=== PATIENT | female | born 1945 | race American Indian/Alaskan Native ===

== ENCOUNTER 2020-12-12 23:02 | Emergency (ER) | payer MEDICARE ==
[2020-12-13] MEDS ORDERED: HYDROcodone/ACETAMINOPHEN 5-325 MG TAB PO ONE (01:03)
[2020-12-13] MEDS ORDERED: ONDANSETRON 4 MG ODT TAB PO ONE (01:03)
[2020-12-13 01:42] LABS: Basophils % (Auto) 0.4 % (0.0-1.8); Eosinophils # (Auto) 0.1 K/mm3 (0.0-0.4); Eosinophils % (Auto) 1.3 % (0.0-4.3); Hematocrit 30.2 % (30.3-42.9); Hemoglobin 10.6 gm/dl (10.1-14.3); Lymphocytes # (Auto) 3.4 K/mm3 (1.2-5.4); Mean Corpuscular HGB Conc 35 % (30-34); Mean Corpuscular Volume 95 fl (79-97); Monocytes # (Auto) 0.5 K/mm3 (0.0-0.8); Monocytes % (Auto) 5.6 % (0.0-7.3); Platelet Count 327 K/mm3 (140-440); Red Blood Count 3.16 M/mm3 (3.65-5.03); Red Cell Distribution Width 14.1 % (13.2-15.2)
[2020-12-13 02:06] LABS: Albumin 4.6 g/dL (3.9-5); Calcium 9.7 mg/dL (8.4-10.2)
--- NOTE | 2020-12-13 02:44 | Cat Scan Report ---
CT LUMBAR SPINE WITHOUT CONTRAST INDICATION: Severe pain, unable to walk TECHNIQUE: All CT scans at this location are performed using CT dose reduction for ALARA by means of automated exposure control. Axial CT images were obtained through the lumbar spine. Sagittal and rogelio nal reformatted images were produced. COMPARISON: None available. Lumbar spine findings: Degenerative and arthritic changes are noted. Broad-based disc bulges are seen at the lower 3 levels with calcification at L5-S1 and L4-5. Facet arthritic changes are moderately p rominent. No fractures or subluxations are seen. No definite acute disc herniation is seen. Additional findings: None. IMPRESSION: No significant acute findings. CT PELVIS WITHOUT CONTRAST INDICATION: Severe pain, unable to walk CONTRAST: Without IV COMPARISON: None available. All CT scans at this location are performed using CT dose reduction for ALARA by means of automated e xposure control. FINDINGS: No intrapelvic masses are seen. No inflammatory changes are noted. Appendix appears within normal limits. Mild colonic diverticulosis is seen without evidence of diverticulitis. No free fluid is noted. Uterus appears to been removed. No bladder abnormalities are seen. Prominent artifact is seen due to bilateral femoral surgical changes with intramedullary rods. Lower lumbar degenerative changes are seen. Mild bilateral hip degenerative changes are noted. Mild bilater al sacroiliac arthritic changes are seen. No significant focal bony lesions are noted. No fractures o r dislocations are seen. IMPRESSION: No acute abnormalities are seen Signer Name: Varinder Irene MD Signed: 12/13/2020 2:39 AM Workstation Name: [email or web address]
[2020-12-13] MEDS ORDERED: MORPHINE 4 MG/1 ML INJ IM ONE (03:39)
--- NOTE | 2020-12-13 03:40 | Emergency Department Report ---
ED General Adult HPI - General Chief complaint: Back Pain/Injury Stated complaint: PAIN IN RT SIDE/HIP PUI?: No Time Seen by Provider: 12/13/20 03:18 Source: patient, family, RN notes reviewed Mode of arrival: Wheelchair Limitations: Physical Limitation - History of Present Illness Initial comments: The patient was evaluated in the emergency department for symptoms described in the history of present illness. He/she was evaluated in the context of the global COVID-19 pandemic, which necessitated consideration that the patient might be at risk for infection with the virus that causes COVID-19. Institutional protocols and algorithms that pertain to the evaluation of patients at risk for COVID-19 are in a state of rapid change based on information released by regulatory bodies including the CDC and federal and state organizations. These policies and algorithms were followed during the patient's care in the emergency department. Please note that these policies, procedures and recommendations changed on a rapid basis. This is a 75-year-old female. She is not known to myself previously. She moved here from [place] to be closer to family a few weeks ago. Past medical history includes possible stroke in September, with gradual decline in functional status, diabetes, hypertension, arthritis, and the possible neuro pathic pain. During the history and physical examination, I am chaperoned by Reta Gibbs The patient's primary care doctor is with [place]. History obtained from patient, and from her daughter. Patient was presumably diagnosed with a stroke in September, at [facility], and went to rehab ilitation for about a Week after being discharged. Patient has been having a gradual decline in functional status, and thus moved to [place], to be close with family. She lives with a daughter, who is not currently present here in this emergency room, and she is accompanied by her other daughter. She presents to the ER today with a complaint of generalized difficulty walking, nontraumatic paralumbar back pain, and sacral pain, for about 2 or 3 weeks. She saw her outpatient primary care doctor for this, who ordered outpatient x- ray, and the patient is starting home physical therapy today, later on this morning. She has been taking Tylenol and Motrin [id number], and her daughter gave her a Zanaflex as well. In addition, the patient is taking pregabalin. The patient may have fallen and hit her head, she is not sure. However, at the moment, she denies headache, neck pain, chest pain, abdominal pain, shortness of breath, she might be having urinary symptoms, but she is not sure, and she complains of hip pain, lower back pain, and sacral pain. She denies focal extremity weakness/numbness. The patient is able to mobilize with a rolling walker. She has a rolling walker with her. -: Gradual, week(s) Location: back Severity scale (0 -10): 10 Quality: aching Consistency: constant Improves with: medication, rest Worsens with: movement - Related Data Home Medications Medication Instructions Recorded Confirmed Last Taken Atenolol [Tenormin] 100 mg PO DAILY 12/13/20 12/13/20 Unknown AtorvaSTATin [Lipitor] 40 mg PO QHS 12/13/20 12/13/20 Unknown Clopidogrel [Plavix] 75 mg PO QDAY 12/13/20 12/13/20 Unknown Losartan Potassium 100 mg PO QDAY 12/13/20 12/13/20 Unknown Metformin HCl [metFORMIN] 1,000 mg PO BID 12/13/20 12/13/20 Unknown Pantoprazole [Protonix TAB] 20 mg QDAY 12/13/20 12/13/20 Unknown Pregabalin 25 mg PO BID 12/13/20 12/13/20 Unknown amLODIPine [Norvasc] 10 mg PO DAILY 12/13/20 12/13/20 Unknown Allergies Allergy/AdvReac Type Severity Reaction Status Date / Time No Known Allergies Allergy Verified 12/13/20 04:15 ED Review of Systems ROS: Stated complaint: PAIN IN RT SIDE/HIP Other details as noted in HPI Constitutional: other (Denies loss of taste and smell). denies: fever Eyes: denies: eye discharge Respiratory: denies: shortness of breath (Denies new shortness of breath) Cardiovascular: denies: chest pain Gastrointestinal: denies: abdominal pain Genitourinary: as per HPI, dysuria Musculoskeletal: back pain, arthralgia, myalgia Neurological: weakness (Global chronic weakness) ED Past Medical Hx - Past Medical History Previous Medical History?: No Hx CVA: Yes (possibly) - Surgical History Past Surgical History?: No - Social History Smoking Status: Never Smoker Substance Use Type: None - Medications Home Medications: Home Medications Medication Instructions Recorded Confirmed Last Taken Type Atenolol [Tenormin] 100 mg PO DAILY 12/13/20 12/13/20 Unknown History AtorvaSTATin [Lipitor] 40 mg PO QHS 12/13/20 12/13/20 Unknown History Clopidogrel [Plavix] 75 mg PO QDAY 12/13/20 12/13/20 Unknown History Losartan Potassium 100 mg PO QDAY 12/13/20 12/13/20 Unknown History Metformin HCl [metFORMIN] 1,000 mg PO BID 12/13/20 12/13/20 Unknown History Pantoprazole [Protonix TAB] 20 mg QDAY 12/13/20 12/13/20 Unknown History Pregabalin 25 mg PO BID 12/13/20 12/13/20 Unknown History amLODIPine [Norvasc] 10 mg PO DAILY 12/13/20 12/13/20 Unknown History ED Physical Exam - General Limitations: Altered Mental Status, Other (Chaperoned by Reta Gibbs) General appearance: alert, in no apparent distress - Head Head exam: Present: atraumatic, normocephalic - Eye Eye exam: Present: normal appearance, EOMI. Absent: nystagmus - ENT ENT exam: Present: normal exam, normal orophraynx, mucous membranes moist, normal external ear exam - Neck Neck exam: Present: normal inspection, full ROM. Absent: tenderness, meningismus - Respiratory Respiratory exam: Present: normal lung sounds bilaterally. Absent: respiratory distress, wheezes, rales, rhonchi, stridor, decreased breath sounds - Cardiovascular Cardiovascular Exam: Present: regular rate, normal rhythm, normal heart sounds. Absent: bradycardia, tachycardia, irregular rhythm, systolic murmur, diastolic murmur, rubs, gallop - GI/Abdominal GI/Abdominal exam: Present: soft. Absent: distended, tenderness, guarding, rebound, rigid, pulsatile mass - Extremities Exam Extremities exam: Present: normal inspection, pedal edema (1+ edema in the bilateral lower extremity), other (2+ pulses noted in the bilateral upper and lower extremities. The pelvis is stable. There is bilateral sacral tenderness. The hips are nontender. Lower extremities are nontender.). Absent: calf tenderness - Back Exam Back exam: Present: normal inspection, paraspinal tenderness. Absent: CVA tend erness (R), CVA tenderness (L) - Neurological Exam Neurological exam: Present: alert, oriented X3, other (No facial droop. Tongue midline. Extraocular movements intact bilaterally. Facial sensation intact to light touch in V1, V2, V3 distribution bilaterally. 5 and a 5 strength in 4 extremities. Sensation intact to light touch in 4 extremities.). Absent: motor sensory deficit - Psychiatric Psychiatric exam: Present: normal affect, normal mood - Skin Skin exam: Present: warm, dry, intact, normal color. Absent: rash ED Course Vital Signs 12/13/20 12/13/20 12/13/20 03:31 03:40 03:45 Temperature 98.2 F Pulse Rate 87 84 85 Respiratory 14 18 13 Rate Blood Pressure 191/90 180/82 Blood Pressure 191/90 [Left] O2 Sat by Pulse 98 98 97 Oximetry 12/13/20 12/13/20 12/13/20 03:47 04:01 04:17 Temperature Pulse Rate 82 85 Respiratory 18 13 18 Rate Blood Pressure 191/90 191/90 Blood Pressure [Left] O2 Sat by Pulse 99 98 Oximetry 12/13/20 12/13/20 12/13/20 04:30 04:42 04:43 Temperature Pulse Rate 85 84 84 Respiratory 14 Rate Blood Pressure 180/79 180/79 180/79 Blood Pressure [Left] O2 Sat by Pulse 98 Oximetry 12/13/20 12/13/20 04:45 05:12 Temperature Pulse Rate 89 Respiratory 16 18 Rate Blood Pressure 179/81 Blood Pressure [Left] O2 Sat by Pulse 99 Oximetry - Reevaluation(s) Reevaluation #1: 12/13/20 04:16 Differential diagnosis, including but not limited to: Deconditioning, arthritis, declining mobility, fracture, dislocation, fall, hyperglycemia, elevated blood pressure, closed head injury Assessment and plan: 75-year-old female, who was afebrile with reassuring vital signs with exception of chronic hypertension, who recently moved here from [facility], and currently resides with family, with presentation com plaints of decreasing mobility, possible fall, and hip pain, paralumbar pain, and sacroiliac pain. Their outpatient primary care doctor seems to have done a fairly comprehensive job with setting this patient up for outpatient follow-up. They have ordered outpatient x-rays, and the patient has home physical therapy starting later on today. Laboratory studies were obtained prior to my personal evaluation of this patient, and they are unremarkable for acute emergent findings; elevated blood sugar reviewed and appreciated, there is no anion gap acidosis. Urinalysis is pending at this time, elevated blood pressure reviewed and appreciated, we will continue patient's home antihypertensive therapy, she is not acutely decompensated from a blood pressure standpoint, please reference the [employer] clinical policy on asymptomatic hypertension. I have also placed a case management consultation in the [facility] order system, and we will defer to case management/secondary social studies teacher to contact family during normal business hours, to determine if patient is eligible for additional services. I did have a rather extensive discussion with the patient's daughter regarding natural history of advancing age, debility, arthritis, and declining mobility, as well as the importance of physical therapy and Occupational Therapy. Patient may continue acetaminophen, ibuprofen, warm compresses, ice packs, heat packs, but should avoid sedating medications such as Zanaflex. Given history of fall and uncertain closed head injury, noncontrast CT scan of the brain will be obtained. Please note that this patient was able to ambulate with a rolling walker, with a 1 person assist. The patient is most likely experiencing natural history of advanced age, arthritis, deconditioning Reevaluation #2: 12/13/20 04:48 Urinalysis not consistent with urinary tract infection. Noncontrast CT scan of the brain negative for acute traumatic findings. TSH, CK level pending. Patient resting comfortably in stretcher at this time, and in no acute distress. Reevaluation #3: 12/13/20 05:22 Remainder of laboratory studies unremarkable for emergent findings. Patient moving 4 extremities without difficulty. Blood pressure is improved. Have gone back and we discussed findings with patient and her daughter, who have articulated understanding. The patient's daugh daughter and patient were given copies of laboratory studies, radiology studies, reiterated discharge instructions. ED Medical Decision Making - Lab Data Result diagrams: 12/13/20 01:17 12/13/20 01:17 Vital Signs 12/13/20 12/13/20 03:40 03:47 Temperature 98.2 F Pulse Rate 84 Respiratory 14 18 Rate Blood Pressure 191/90 [Left] O2 Sat by Pulse 98 Oximetry Lab Results 12/13/20 12/13/20 Range/Units 01:17 01:17 WBC 8.4 (4.5-11.0) K/mm3 RBC 3.16 L (3.65-5.03) M/mm3 Hgb 10.6 (10.1-14.3) gm/dl Hct 30.2 L (30.3-42.9) % MCV 95 (79-97) fl MCH 34 H (28-32) pg MCHC 35 H (30-34) % RDW 14.1 (13.2-15.2) % Plt Count 327 (140-440) K/mm3 Lymph % (Auto) 41.0 H (13.4-35.0) % [place] % (Auto) 5.6 (0.0-7.3) % Eos % (Auto) 1.3 (0.0-4.3) % Baso % (Auto) 0.4 (0.0-1.8) % Lymph # (Auto) 3.4 (1.2-5.4) K/mm3 [place] # (Auto) 0.5 (0.0-0.8) K/mm3 Eos # (Auto) 0.1 (0.0-0.4) K/mm3 Baso # (Auto) 0.0 (0.0-0.1) K/mm3 Seg Neutrophils % 51.7 (40.0-70.0) % Seg Neutrophils # 4.3 (1.8-7.7) K/mm3 Sodium 137 (137-145) mmol/L Potassium 3.9 (3.6-5.0) mmol/L Chloride 100.3 (98-107) mmol/L Carbon Dioxide 23 (22-30) mmol/L Anion Gap 18 mmol/L BUN 31 H (7-17) mg/dL Creatinine 1.2 (0.6-1.2) mg/dL Estimated GFR 44 ml/min BUN/Creatinine Ratio 26 % Glucose 233 H (65-100) mg/dL Calcium 9.7 (8.4-10.2) mg/dL Total Bilirubin 0.30 (0.1-1.2) mg/dL AST 15 (5-40) units/L ALT 25 (7-56) units/L Alkaline Phosphatase 63 (35-129) units/L Total Protein 6.9 (6.3-8.2) g/dL Albumin 4.6 (3.9-5) g/dL Albumin/Globulin Ratio 2.0 % - Radiology Data Radiology results: report reviewed, image reviewed CT LUMBAR SPINE WITHOUT CONTRAST INDICATION: Severe pain, unable to walk TECHNIQUE: All CT scans at this location are performed using CT dose reduction for ALARA by means of automated exposure control. Axial CT images were obtained through the lumbar spine. Sagittal and coronal reformatted images were produced. COMPARISON: None available. Lumbar spine findings: Degenerative and arthritic changes are noted. Broad-based disc bulges are seen at the lower 3 levels with calcification at L5-S1 and L4-5. Facet arthritic changes are moderately prominent. No fractures or subluxations are seen. No definite acute disc herniation is seen. Additional findings: None. IMPRESSION: No significant acute findings. CT PELVIS WITHOUT CONTRAST INDICATION: Severe pain, unable to walk CONTRAST: Without IV COMPARISON: None available. All CT scans at this location are performed using CT dose reduction for ALARA by means of automated exposure control. FINDINGS: No intrapelvic masses are seen. No inflammatory changes are noted. Appendix appears within normal limits. Mild colonic diverticulosis is seen without evidence of diverticulitis. No free fluid is noted. Uterus appears to been removed. No bladder abnormalities are seen. Prominent artifact is seen due to bilateral femoral surgical changes with intramedullary rods. Lower lumbar degenerative changes are seen. Mild bilateral hip degenerative changes are noted. Mild bilateral sacroiliac arthritic changes are seen. No significant focal bony lesions are noted. No fractures or dislocations are seen. IMPRESSION: No acute abnormalities are seen Signer Name: Varinder Irene MD Signed: 12/13/2020 1:39 AM Workstation Name: [id number] Critical care attestation.: If time is entered above; I have spent that time in minutes in the direct care of this critically ill patient, excluding procedure time. ED Disposition Clinical Impression: Arthralgia, sacroiliac, Arthritis, lumbar spine, Bilateral hip joint arthritis, Hypertension, Diabetes, Declining mobility, History of fall Disposition: DC-01 TO HOME OR SELFCARE Is pt being admited?: No Does the pt Need Aspirin: No Condition: Good Instructions: Arthritis, Diabetes Mellitus Type 2 in Adults (ED), Hypertension (ED) Additional Instructions: Please continue current home outpatient medications. Please follow-up with your primary care doctor within the next week. Please continue home physical therapy/Occupational Therapy. Please make certain to ambulate with a rolling walker at all times, or in a wheelchair, preferably while another adult is present. Patient may alternate ice packs and heat packs as needed for physical pain. Patient is recommended to avoid sedating medications such as opioids, Zanaflex, muscle relaxants, etc. Patient may take Tylenol/acetaminophen, 650 mg by mouth, every 4-6 hours as needed for pain, maximum daily dose to not exceed 3 g per 24 hours. Patient may also take ibuprofen/Motrin, 400 mg by mouth, every 6 hours with food, as needed for pain. Please have your primary care doctor contact medical records department today to obtain copies of laboratory studies and radiology studies. Please return to the emergency room right away with new pain, worsened pain, migration of pain, projectile vomiting, change in mental status, confusion, inability to tolerate liquid feeds, new, worsened or different symptoms not present on the initial emergency room evaluation. As we discussed, patient likely experiencing natural history of arthritis, physical deconditioning, and advanced age. Physical therapy, ambulation as tolerated, exercise and movement as tolerated, will greatly assist with patient's physical discomfort. Patient was also found to have evidence of elevated blood pressure, and high blood sugar levels while here in the emergency room. Please make certain to take blood pressure medications and diabetic medications as prescribed. Please make certain to remain compliant with a diabetic appropriate diet. Long-term complications of hypertension and hyperglycemia include stroke, heart attack, disability, paralysis, loss of quality of life. Referrals: [facility] [Provider Group] - 3-5 Days MINAL AVILA MD [Staff Physician] - 3-5 Days
[2020-12-13] MEDS ORDERED: amLODIPine 10 MG TAB PO STA (04:08)
[2020-12-13] MEDS ORDERED: PREGABALIN 25 MG CAP PO STA (04:08)
[2020-12-13] MEDS ORDERED: NON-FORMULARY EACH (Losartan Potassium [Losartan Potassium] 100 MG Tablet) PO STA (04:08)
[2020-12-13] MEDS ORDERED: NON-FORMULARY EACH (Metformin Hcl [Metformin] 1,000 MG Tablet) PO STA (04:08)
[2020-12-13] MEDS ORDERED: NON-FORMULARY EACH (Atenolol [Tenormin] 100 MG Tablet) PO STA (04:08)
[2020-12-13] MEDS ORDERED: atenoloL 50 MG TAB PO STA (04:16)
[2020-12-13] MEDS ORDERED: LOSARTAN 50 MG TAB PO STA (04:17)
[2020-12-13] MEDS ORDERED: metFORMIN 500 MG TAB PO STA (04:18)
[2020-12-13 04:21] LABS: Bilirubin,Urine NEG (Negative); Blood,Urine NEG (Negative); Color,Urine Straw (Yellow); Protein,Urine <15 mg/dL mg/dL (Negative); RBC,Urine < 1.0 /HPF (0.0-6.0); Urobilinogen,Urine < 2.0 mg/dL (<2.0)
--- NOTE | 2020-12-13 04:45 | Cat Scan Report ---
CT HEAD WITHOUT CONTRAST INDICATION: falls, hx of cvas in september 2020 TECHNIQUE: All CT scans at this location are performed using CT dose reduction for ALARA by means of automated exposure control. COMPARISON: None available. FINDINGS: BRAIN: No hemorrhage or mass effect are seen. No evidence of acute infarction is noted. Microvascular changes are seen. 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 ORBITS: Normal as visualized. SOFT TISSUES OF HEAD: Normal. CALVARIUM: Normal. VISUALIZED PARANASAL SINUSES AND MASTOID AIR CELLS: Mild mucosal thickening is seen in the ethmoid an d maxillary sinuses without air-fluid levels. ADDITIONAL FINDINGS: None. IMPRESSION: No acute intracranial abnormality. Signer Name: Varinder Irene MD Signed: 12/13/2020 4:41 AM Workstation Name: [id number]
[2020-12-13] MEDS ORDERED: IBUPROFEN 400 MG TAB PO ONE (04:49)
[2020-12-13 05:56] VITALS: BP 176/81
== END 2020-12-13 05:40 | disposition home or self-care (01) ==
LOC: ED 23:02
DX: M46.1 Sacroiliitis, not elsewhere classified (principal); M47.816 Spondylosis without myelopathy or radiculopathy, lumbar region; M13.852 Other specified arthritis, left hip; M13.851 Other specified arthritis, right hip; R10.9 Unspecified abdominal pain; I10 Essential (primary) hypertension; E11.9 Type 2 diabetes mellitus without complications; Z91.81 History of falling; Z86.73 Personal history of transient ischemic attack (TIA), and cerebral infarction without residual deficits; Z79.84 Long term (current) use of oral hypoglycemic drugs; Z79.899 Other long term (current) drug therapy
CPT/HCPCS: 36415; 70450; 72131; 72192; 80053; 81001; 82550; 84443; 85025; 96372; 99284; J2270; 80320; G0480; Q0162